=== PATIENT | female | born 1970 | race Caucasian/White ===

== ENCOUNTER 2019-12-31 15:56 | Emergency (ER) | payer MEDICAID, MEDICARE, OTHER ==
[~2019-12-31] VITALS: Ht 160 cm; Wt 52.3 kg
[2019-12-31 16:25] VITALS: BP 101/72
[2019-12-31] MEDS ORDERED: KETOROLAC 30 MG/1 ML IM ONE (16:30)
[2019-12-31] MEDS ORDERED: KETOROLAC 30 MG/1 ML ONE (16:35)
[2019-12-31] MEDS ORDERED: OXYcodone/APAP 5/325MG TABLET ONE (17:42)
--- NOTE | 2019-12-31 17:46 | NUR ---
DC EDUCATION PROVIDED, PT DEMONSTRATES UNDERSTANDING. PT AMBULATED STEADILY TO DC WITH RN. FRIEND TO TRANSPORT PT HOME.
[2019-12-31] MEDS ORDERED: OXYcodone/APAP 5/325MG TABLET PO ONE (18:00)
== END 2019-12-31 18:09 | disposition home or self-care (01) ==
LOC: ED 18:00
DX: S39.012A Strain of muscle, fascia and tendon of lower back, initial encounter (principal); F17.200 Nicotine dependence, unspecified, uncomplicated; X58.XXXA Exposure to other specified factors, initial encounter; Y93.89 Activity, other specified; Y92.89 Other specified places as the place of occurrence of the external cause; Y99.8 Other external cause status
CPT/HCPCS: 96372; 99283; J1885; J7512

== ENCOUNTER 2020-01-17 16:40 | Emergency (ER) | payer MEDICARE ==
[~2020-01-17] VITALS: Ht 160 cm; Wt 49.9 kg
[2020-01-17 16:45] VITALS: BP 110/48
[2020-01-17] MEDS ORDERED: DEXAMETHASONE 4 MG TABLET PO STA (17:08)
[2020-01-17] MEDS ORDERED: IBUPROFEN 200 MG TABLET PO ONE (17:30)
== END 2020-01-17 17:28 | disposition home or self-care (01) ==
LOC: ED 16:45
DX: S39.012A Strain of muscle, fascia and tendon of lower back, initial encounter (principal); F17.200 Nicotine dependence, unspecified, uncomplicated; X58.XXXA Exposure to other specified factors, initial encounter; Y93.89 Activity, other specified; Y92.89 Other specified places as the place of occurrence of the external cause; Y99.8 Other external cause status
CPT/HCPCS: 99283